=== PATIENT | female | born 1995 | race Caucasian/White ===

== ENCOUNTER 2020-08-31 19:29 | Emergency (ER) | payer MEDICAID, SELFPAY ==
[2020-08-31 19:40] VITALS: BP 120/81; PULSE 97; RESP 18; TEMP 36.6; O2SAT 99; BMI 35.4
== END 2020-08-31 22:10 | disposition left against medical advice (07) ==
PROVIDERS: Emergency Provider Emergency Medicine; PCP Family Medicine
DX: T78.40XA Allergy, unspecified, initial encounter (principal); X58.XXXA Exposure to other specified factors, initial encounter
CPT/HCPCS: 99281; 99282

== ENCOUNTER 2022-04-28 18:01 | Emergency (ER) | payer MEDICAID, SELFPAY ==
--- NOTE | ~2022-04-28 | CT_ITS ---
EXAMINATION: CT head/brain wo IV con CLINICAL INFORMATION: Reason for Exam worst headache of their life COMPARISON: None. TECHNIQUE: Contiguous axial imaging was performed from the skull base to vertex without intravenous contrast. Sagittal and coronal reformatted images were obtained. This CT examination was performed using dose optimization techniques as appropriate, variously including the following: * Automated exposure control * Adjustment of mA and/or kV according to patient size (this includes techniques or standardized protocols for targeted exams where dose is matched to indication/reason for exam; i.e. extremities or head) Use of iterative reconstruction technique DLP: 666 mGy-cm FINDINGS: No acute osseous or soft tissue abnormality. The mastoid air cells and visualized portions of the paranasal sinuses are well aerated. There is no evidence of acute intracranial hemorrhage or territorial infarction. No abnormal mass effect or midline shift is seen. Liz to white matter differentiation is well preserved. No extra-axial fluid collections are identified. No hydrocephalus. No significant volume loss. There is no abnormal attenuation within the brain parenchyma. CT/CT head/brain wo IV con IMPRESSION: No acute intracranial abnormality including hemorrhage, mass effect, hydrocephalus, or acute territorial edematous infarction.
[2022-04-28 18:31] VITALS: PULSE 99; RESP 19; TEMP 36.6; O2SAT 99; BMI 30.1
--- NOTE | 2022-04-28 18:37 | ED_ITS ---
HPI - Headache General Chief Complaint: Headache <Albania Rojas NP - Last Filed: 04/28/22 18:40> Stated Complaint: neck manipulation, severe headache afterwards- 2hr <Albania Rojas NP - Last Filed: 04/28/22 18:40> Time Seen by Provider: 04/28/22 21:57 <Albania Rojas NP - Last Filed: 04/28/22 18:40> Source: patient <Fabiana Leonard NP - Last Filed: 04/29/22 02:32> Mode of arrival: ambulatory <Fabiana Leonard NP - Last Filed: 04/29/22 02:32> Limitations: no limitations <Fabiana Leonard NP - Last Filed: 04/29/22 02:32> History of Present Illness HPI Narrative: 26-year-old female prefers to be called AJ presents with severe headache after having and neck manipulation at her primary care physician's office. Patient states her headache is severe and is causing dizziness. <Fabiana Leonard NP - Last Filed: 04/29/22 02:32> MD elicited complaint: headache <Fabiana Leonard NP - Last Filed: 04/29/22 02:32> Onset (ago): hour(s) (Within the hour of arrival) <Fabiana Leonard NP - Last Filed: 04/29/22 02:32> Onset description: suddenly <Fabiana Leonard NP - Last Filed: 04/29/22 02:32> Location: diffuse <Fabiana Leonard NP - Last Filed: 04/29/22 02:32> Severity: severe <Fabiana Leonard NP - Last Filed: 04/29/22 02:32> Pain scale (0-10): 10 <Fabiana Leonard NP - Last Filed: 04/29/22 02:32> Quality & Timing: throbbing <Fabiana Leonard NP - Last Filed: 04/29/22 02:32> Exacerbating factors: movement of head/neck <Fabiana Leonard NP - Last Filed: 04/29/22 02:32> Relieving factors: nothing <Fabiana Leonard NP - Last Filed: 04/29/22 02:32> Associated symptoms: lightheadedness <Fabiana Leonard NP - Last Filed: 04/29/22 02:32> Treatments prior to arrival: none <Fabiana Leonard NP - Last Filed: 04/29/22 02:32> Related Data Home Medications: Previous Rx's Medication Instructions Recorded cyclobenzaprine 10 mg tablet 10 mg PO TID PRN muscle spasm #10 04/29/22 tabs <Albania Rojas NP - Last Filed: 04/28/22 18:40> Allergies/Adverse Reactions: Allergies Allergy/AdvReac Type Severity Reaction Status Date / Time Benzodiazepines Allergy Unknown VOMITING Unverified 12/06/19 19:02 [BENZODIAZEPINES] quetiapine [From SEROQUEL] Allergy Unknown DELIRIOUS Unverified 12/06/19 19:02 latex Allergy Hives Verified 04/28/22 18:37 <Albania Rojas NP - Last Filed: 04/28/22 18:40> Review of Systems Review of Systems: Constitutional: No Fever, No Chills Cardiovascular: No Chest Pain, No SOB Respiratory: No Cough, No Dyspnea Gastrointestinal: No Nausea, No Vomiting, No Diarrhea, No abdominal Pain Genitourinary: No Dysuria, No Hematuria Musculoskeletal: No joint pain, No Myalgias, No Joint Swelling Skin: No Skin lacerations, No rash Neuro: No Weakness, No Numbness, No Paresthesias, No Loss of Consciousness, positive Dizziness, positive Headache <Fabiana Leonard NP - Last Filed: 04/29/22 02:32> Yes all other systems are reviewed and are negative <Fabiana Leonard NP - Last Filed: 04/29/22 02:32> [facility] Past Medical History Attestation statement: The following information was validated with the patient. <Fabiana Leonard NP - Last Filed: 04/29/22 02:32> Source: old records reviewed <Fabiana Leonard NP - Last Filed: 04/29/22 02:32> Medical History: Medical History No known health problems <Albania Rojas NP - Last Filed: 04/28/22 18:40> Social History Social History: Social History Alcohol intake: never Smoked in Last 30 Days: No Use of substances other than those prescribed or required for medical reasons: No Advance Directives: No Advance Directives Information Provided: No Patient : No <Albania Rojas NP - Last Filed: 04/28/22 18:40> Physical Exam Vital Signs: Vital Signs: Last Vital Signs Temp 98.7 F 04/29/22 00:00 Pulse 81 04/29/22 00:00 Resp 13 04/29/22 00:00 BP 115/72 04/29/22 00:00 Pulse Ox 98 04/29/22 00:00 O2 Del Method 04/29/22 00:00 BMI result Body Mass Index 30.1 <Albania Rojas NP - Last Filed: 04/28/22 18:40> Vital Signs: Last Vital Signs Temp 98.7 F 04/29/22 00:00 Pulse 81 04/29/22 00:00 Resp 13 04/29/22 00:00 BP 115/72 04/29/22 00:00 Pulse Ox 98 04/29/22 00:00 O2 Del Method 04/29/22 00:00 BMI result Body Mass Index 30.1 <Fabiana Leonard NP - Last Filed: 04/29/22 02:32> Appearance: Alert. Oriented X3. Moderate distress. Eyes: Pupils equal, round and reactive to light. Neck: Normal inspection. Neck supple. CVS: Normal heart rate and rhythm. Pulses normal. Respiratory: No respiratory distress. Skin: Skin warm and dry. Normal skin color. Normal skin turgor. Extremities: No lower extremity edema. Moves all extremities against resistance. Neuro: No motor deficit. No sensory deficit. Cranial nerves 2-12 intact. <Fabiana Leonard NP - Last Filed: 04/29/22 02:32> Course Course Course Narrative: This is a rapid medical exam. Deferred additional HPI, ROS, PE to primary provider. 26 yo female here with complaints of worsening ROSS after neck manipulation by her PCP today in the office. Referred in by PCP for further evaluation. Will obtain labs, UA, ur preg. May need additional imaging. <Albania Rojas NP - Last Filed: 04/28/22 18:40> This is a rapid medical exam. Deferred additional HPI, ROS, PE to primary provider. 26 yo female here with complaints of worsening ROSS after neck manipulation by her PCP today in the office. Referred in by PCP for further evaluation. Will obtain labs, UA, ur preg. May need additional imaging. 26-year-old female, prefers to be called AJ, presents for evaluation after a severe headache that occurred after a neck manipulation while she was at her primary care physician's office. Labs were drawn while patient was in the emergency department waiting room which are negative for acute findings requi ring emergent intervention. Patient is reporting 10/10 pain in her head, has full range of motion to her neck. Will order CT scan of the head for ?worst headache of her life?. Will give Fioricet for pain management. Neurovascularly intact. Patient states that the Fioricet was ineffective, CT scan is negative for acute findings requiring emergent intervention. Patient would like to be discharged home. Urinalysis is negative, vital signs are stable and within normal limits. Patient is ambulatory. Patient verbalized understanding of signs symptoms indicating need for emergent intervention. <Fabiana Leonard NP - Last Filed: 04/29/22 02:32> Medications Administered Discontinued Medications Generic Name Dose Route Start Last Admin Trade Name Freq PRN Reason Stop Dose Admin Acetaminophen/Butalbital/Caffeine 1 tab 04/28/22 22:01 04/28/22 22:10 Butalb/Acetamin/Caff 50/325/40 Tablet PO 04/28/22 22:02 1 tab ONCE ONE Administration <Albania Rojas NP - Last Filed: 04/28/22 18:40> Medications Administered Discontinued Medications Generic Name Dose Route Start Last Admin Trade Name Freq PRN Reason Stop Dose Admin Acetaminophen/Butalbital/Caffeine 1 tab 04/28/22 22:01 04/28/22 22:10 Butalb/Acetamin/Caff 50/325/40 Tablet PO 04/28/22 22:02 1 tab ONCE ONE Administration <Fabiana Leonard NP - Last Filed: 04/29/22 02:32> Medical Decision Making Differential Diagnosis Differential Diagnoses: The differential diagnosis associated with the presentation includes <Fabiana Leonard NP - Last Filed: 04/29/22 02:32> Migraine <Fabiana Leonard [employer]ER - Last Filed: 04/29/22 02:32> Lab Data MDM Lab Attestation statement: I reviewed the patient's lab results. <Fabiana Leonard, [employer] - Last Filed: 04/29/22 02:32> Result Diagrams: 04/28/22 19:59 04/28/22 19:59 <Albania Rojas [employer] - Last Filed: 04/28/22 18:40> Labs: Lab Results 04/28/22 04/28/22 04/28/22 Range/Units 19:59 19:59 20:18 WBC 7.7 (4.8-10.8) X10*3/uL RBC 4.39 (4.20-5.50) X10*6/uL Hgb 13.4 (12.0-16.0) g/dl Hct 39.2 (37.0-47.0) % MCV 89.3 (80.0-98.0) fL MCH 30.5 (27.0-33.0) pg MCHC 34.2 (31.0-35.0) g/dl RDW 12.2 (11.0-16.0) % Plt Count 362 (160-400) X10*3/uL MPV 9.8 (9.4-12.3) fL Immature Gran % (Auto) 0.1 (0.0-0.4) % Neut % (Auto) 49.8 (45-73) % Lymph % (Auto) 40.5 H (20-40) % [place] % (Auto) 7.5 (2-11) % Eos % (Auto) 1.6 (0-4) % Baso % (Auto) 0.5 (0-2) % Lymph # (Auto) 3.1 (1.2-4.9) X10*3/uL [place] # (Auto) 0.6 (0.1-1.2) X10*3/uL Eos # (Auto) 0.1 (0.0-0.4) X10*3/uL Baso # (Auto) 0.0 (0.0-0.2) X10*3/uL Abs Immat Gran (auto) 0.01 (0.00-0.03) X10*3/uL Absolute Neuts (auto) 3.9 (2.0-8.3) x10*3/uL Absolute Nucleated RBC 0.000 (0.0-0.012) X10*3/uL Nucleated RBC % (auto) 0.0 (0.0-0.2) /100WBC Sodium 141 (135-145) mmol/L Potassium 3.8 (3.3-5.1) mmol/L Chloride 104 (96-108) mmol/L Carbon Dioxide 24 (22-29) mmol/L Anion Gap 17 (12-20) BUN 6 L (9-16) mg/dL Creatinine 0.92 (0.5-1.4) mg/dL Estim Creat Clear Calc 89.5 Estimated GFR > 60 Random Glucose 92 (60-115) mg/dL Calcium 9.5 (8.4-10.2) mg/dL Total Bilirubin 0.3 (0.0-1.0) mg/dL Direct Bilirubin < 0.2 (0.0-0.5) mg/dL AST 19 (5-31) U/L ALT 16 (0-31) U/L Alkaline Phosphatase 90 (39-117) U/L Total Protein 7.0 (6.5-8.0) g/dL Albumin 4.7 (3.5-5.0) g/dL Urine Color Yellow Urine Appearance Clear Urine pH 6.5 (5.0-9.0) Ur Specific [place] <= 1.005 (1.005-1.025) Urine Protein Negative (Neg-Trace) mg/dL Urine Glucose (UA) Negative (Negative) mg/dL Urine Ketones Negative (Negative) mg/dL Urine Blood Negative (Negative) Urine Nitrite Negative (Negative) Ur Leukocyte Esterase Negative (Negative) Urine Test (NEGATIVE) 04/28/22 Range/Units 20:18 WBC (4.8-10.8) X10*3/uL RBC (4.20-5.50) X10*6/uL Hgb (12.0-16.0) g/dl Hct (37.0-47.0) % MCV (80.0-98.0) fL MCH (27.0-33.0) pg MCHC (31.0-35.0) g/dl RDW (11.0-16.0) % Plt Count (160-400) X10*3/uL MPV (9.4-12.3) fL Immature Gran % (Auto) (0.0-0.4) % Neut % (Auto) (45-73) % Lymph % (Auto) (20-40) % [place] % (Auto) (2-11) % Eos % (Auto) (0-4) % Baso % (Auto) (0-2) % Lymph # (Auto) (1.2-4.9) X10*3/uL [place] # (Auto) (0.1-1.2) X10*3/uL Eos # (Auto) (0.0-0.4) X10*3/uL Baso # (Auto) (0.0-0.2) X10*3/uL Abs Immat Gran (auto) (0.00-0.03) X10*3/uL Absolute Neuts (auto) (2.0-8.3) x10*3/uL Absolute Nucleated RBC (0.0-0.012) X10*3/uL Nucleated RBC % (auto) (0.0-0.2) /100WBC Sodium (135-145) mmol/L Potassium (3.3-5.1) mmol/L Chloride (96-108) mmol/L Carbon Dioxide (22-29) mmol/L Anion Gap (12-20) BUN (9-16) mg/dL Creatinine (0.5-1.4) mg/dL Estim Creat Clear Calc Estimated GFR Random Glucose (60-115) mg/dL Calcium (8.4-10.2) mg/dL Total Bilirubin (0.0-1.0) mg/dL Direct Bilirubin (0.0-0.5) mg/dL AST (5-31) U/L ALT (0-31) U/L Alkaline Phosphatase (39-117) U/L Total Protein (6.5-8.0) g/dL Albumin (3.5-5.0) g/dL Urine Color Urine Appearance Urine pH (5.0-9.0) Ur Specific [place] (1.005-1.025) Urine Protein (Neg-Trace) mg/dL Urine Glucose (UA) (Negative) mg/dL Urine Ketones (Negative) mg/dL Urine Blood (Negative) Urine Nitrite (Negative) Ur Leukocyte Esterase (Negative) Urine Test NEGATIVE (NEGATIVE) <Albaniadarek Rojas NP - Last Filed: 04/28/22 18:40> Lab Results 04/28/22 04/28/22 04/28/22 Range/Units 19:59 19:59 20:18 WBC 7.7 (4.8-10.8) X10*3/uL RBC 4.39 (4.20-5.50) X10*6/uL Hgb 13.4 (12.0-16.0) g/dl Hct 39.2 (37.0-47.0) % MCV 89.3 (80.0-98.0) fL MCH 30.5 (27.0-33.0) pg MCHC 34.2 (31.0-35.0) g/dl RDW 12.2 (11.0-16.0) % Plt Count 362 (160-400) X10*3/uL MPV 9.8 (9.4-12.3) fL Immature Gran % (Auto) 0.1 (0.0-0.4) % Neut % (Auto) 49.8 (45-73) % Lymph % (Auto) 40.5 H (20-40) % [place] % (Auto) 7.5 (2-11) % Eos % (Auto) 1.6 (0-4) % Baso % (Auto) 0.5 (0-2) % Lymph # (Auto) 3.1 (1.2-4.9) X10*3/uL [place] # (Auto) 0.6 (0.1-1.2) X10*3/uL Eos # (Auto) 0.1 (0.0-0.4) X10*3/uL Baso # (Auto) 0.0 (0.0-0.2) X10*3/uL Abs Immat Gran (auto) 0.01 (0.00-0.03) X10*3/uL Absolute Neuts (auto) 3.9 (2.0-8.3) x10*3/uL Absolute Nucleated RBC 0.000 (0.0-0.012) X10*3/uL Nucleated RBC % (auto) 0.0 (0.0-0.2) /100WBC Sodium 141 (135-145) mmol/L Potassium 3.8 (3.3-5.1) mmol/L Chloride 104 (96-108) mmol/L Carbon Dioxide 24 (22-29) mmol/L Anion Gap 17 (12-20) BUN 6 L (9-16) mg/dL Creatinine 0.92 (0.5-1.4) mg/dL Estim Creat Clear Calc 89.5 Estimated GFR > 60 Random Glucose 92 (60-115) mg/dL Calcium 9.5 (8.4-10.2) mg/dL Total Bilirubin 0.3 (0.0-1.0) mg/dL Direct Bilirubin < 0.2 (0.0-0.5) mg/dL AST 19 (5-31) U/L ALT 16 (0-31) U/L Alkaline Phosphatase 90 (39-117) U/L Total Protein 7.0 (6.5-8.0) g/dL Albumin 4.7 (3.5-5.0) g/dL Urine Color Yellow Urine Appearance Clear Urine pH 6.5 (5.0-9.0) Ur Specific [place] <= 1.005 (1.005-1.025) Urine Protein Negative (Neg-Trace) mg/dL Urine Glucose (UA) Negative (Negative) mg/dL Urine Ketones Negative (Negative) mg/dL Urine Blood Negative (Negative) Urine Nitrite Negative (Negative) Ur Leukocyte Esterase Negative (Negative) Urine Test (NEGATIVE) 04/28/22 Range/Units 20:18 WBC (4.8-10.8) X10*3/uL RBC (4.20-5.50) X10*6/uL Hgb (12.0-16.0) g/dl Hct (37.0-47.0) % MCV (80.0-98.0) fL MCH (27.0-33.0) pg MCHC (31.0-35.0) g/dl RDW (11.0-16.0) % Plt Count (160-400) X10*3/uL MPV (9.4-12.3) fL Immature Gran % (Auto) (0.0-0.4) % Neut % (Auto) (45-73) % Lymph % (Auto) (20-40) % [place] % (Auto) (2-11) % Eos % (Auto) (0-4) % Baso % (Auto) (0-2) % Lymph # (Auto) (1.2-4.9) X10*3/uL [place] # (Auto) (0.1-1.2) X10*3/uL Eos # (Auto) (0.0-0.4) X10*3/uL Baso # (Auto) (0.0-0.2) X10*3/uL Abs Immat Gran (auto) (0.00-0.03) X10*3/uL Absolute Neuts (auto) (2.0-8.3) x10*3/uL Absolute Nucleated RBC (0.0-0.012) X10*3/uL Nucleated RBC % (auto) (0.0-0.2) /100WBC Sodium (135-145) mmol/L Potassium (3.3-5.1) mmol/L Chloride (96-108) mmol/L Carbon Dioxide (22-29) mmol/L Anion Gap (12-20) BUN (9-16) mg/dL Creatinine (0.5-1.4) mg/dL Estim Creat Clear Calc Estimated GFR Random Glucose (60-115) mg/dL Calcium (8.4-10.2) mg/dL Total Bilirubin (0.0-1.0) mg/dL Direct Bilirubin (0.0-0.5) mg/dL AST (5-31) U/L ALT (0-31) U/L Alkaline Phosphatase (39-117) U/L Total Protein (6.5-8.0) g/dL Albumin (3.5-5.0) g/dL Urine Color Urine Appearance Urine pH (5.0-9.0) Ur Specific [place] (1.005-1.025) Urine Protein (Neg-Trace) mg/dL Urine Glucose (UA) (Negative) mg/dL Urine Ketones (Negative) mg/dL Urine Blood (Negative) Urine Nitrite (Negative) Ur Leukocyte Esterase (Negative) Urine Test NEGATIVE (NEGATIVE) <Fabiana Leonard NP - Last Filed: 04/29/22 02:32> Independent Interpretation I performed an independent interpretation of an: CT Scan <Fabiana Leonard NP - Last Filed: 04/29/22 02:32> Radiology Impression Discussion of test interpretation with radiology: I have reviewed the radiologist's reading. <Fabiana Leonard NP - Last Filed: 04/29/22 02:32> Radiologist Impression: FINDINGS: No acute osseous or soft tissue abnormality. The mastoid air cells and visualized portions of the paranasal sinuses are well aerated. There is no evidence of acute intracranial hemorrhage or territorial infarction. No abnormal mass effect or midline shift is seen. Liz to white matter differentiation is well preserved. No extra-axial fluid collections are identified. No hydrocephalus. No significant volume loss. There is no abnormal attenuation within the brain parenchyma. ? CT/CT head/brain wo IV con IMPRESSION: ? No acute intracranial abnormality including hemorrhage, mass effect, hydrocephalus, or acute territorial edematous infarction. <Fabiana Leonard NP - Last Filed: 04/29/22 02:32> External Record Review No prior a patient records at this facility <Fabiana Leonard NP - Last Filed: 04/29/22 02:32> Prescription Management I considered prescription management with: Other (Muscle relaxer) <Fabiana Leonard NP - Last Filed: 04/29/22 02:32> Discharge Plan Discharge Clinical Impression: Headache, Muscle strain <Albania Rojas NP - Last Filed: 04/28/22 18:40> Patient Disposition: Home, Self-Care <Albania Rojas NP - Last Filed: 04/28/22 18:40> Instructions: Muscle Strain (ED), Acute Headache (ED) <Albania Rojas NP - Last Filed: 04/28/22 18:40> Additional Instructions: You were evaluated for pain after a neck adjustment. CT scan of the head negative for acute findings requiring emergent intervention. Your symptoms are consistent with possible musculoskeletal strain. Please take cyclobenzaprine 10 mg every 8 hours as needed. This medication is a muscle relaxer, this medication can delay reaction time, increased risk for falls, and cause drowsiness. Do not drive or operate machinery while taking this medication Your lab values are within normal limits Thank you for choosing this emergency department for evaluation. Please follow-up with primary care physician as needed. Return to the emergency department for any new, concerning, or worsening symptoms. <Albania Rojas NP - Last Filed: 04/28/22 18:40> Prescriptions: New cyclobenzaprine 10 mg tablet 10 mg PO TID PRN (Reason: muscle spasm) Qty: 10 0RF <Albania Rojsa NP - Last Filed: 04/28/22 18:40> Interventions: ED Discharge Assessment Last Done: 04/29/22 00:46 <Albania Rojas NP - Last Filed: 04/28/22 18:40> Discharge Date/Time: 04/29/22 00:47 <Albania Rojas NP - Last Filed: 04/28/22 18:40>
[2022-04-28 20:05] LABS: MANUAL DIFF FLAG NO
[2022-04-28 20:06] LABS: Basophils Percent Auto 0.5 % (0-2); Eosinophils Absolute Auto 0.1 X10*3/uL (0.0-0.4); Eosinophils Percent Auto 1.6 % (0-4); Hematocrit 39.2 % (37.0-47.0); Hemoglobin 13.4 g/dl (12.0-16.0); Imm Gran Abs Auto 0.01 X10*3/uL (0.00-0.03); Imm Gran Pct Auto 0.1 % (0.0-0.4); Lymphocytes Absolute Auto 3.1 X10*3/uL (1.2-4.9); Lymphocytes Percent Auto 40.5 % (20-40); Mean Corpuscular HGB Conc 34.2 g/dl (31.0-35.0); Mean Corpuscular Hemoglobin 30.5 pg (27.0-33.0); Mean Corpuscular Volume 89.3 fL (80.0-98.0); Mean Platelet Volume 9.8 fL (9.4-12.3); Monocytes Absolute Auto 0.6 X10*3/uL (0.1-1.2); Monocytes Percent Auto 7.5 % (2-11); Neutrophils Absolute Auto 3.9 x10*3/uL (2.0-8.3); Neutrophils Percent Auto 49.8 % (45-73); Platelet Count 362 X10*3/uL (160-400); Red Blood Count 4.39 X10*6/uL (4.20-5.50); Red Cell Distribution Width 12.2 % (11.0-16.0); White Blood Count 7.7 X10*3/uL (4.8-10.8)
[2022-04-28 20:10] VITALS: BP 121/85; PULSE 91; RESP 14; TEMP 36.8; O2SAT 99
[2022-04-28 20:27] LABS: Appearance Urine Clear; Color Urine Yellow; Glucose Urine UA Negative (Negative); Leukocyte Esterase Urine Negative (Negative); Nitrite Urine Negative (Negative); PH 6.5 (5.0-9.0); Specific Gravity - Urine <= 1.005 (1.005-1.025); Urine Blood Negative (Negative); Urine Ketones Negative (Negative); Urine Protein Negative (Neg-Trace)
[2022-04-28 20:29] LABS: Alanine Aminotransferase 16 U/L (0-31); Albumin Level 4.7 g/dL (3.5-5.0); Alkaline Phosphatase 90 U/L (39-117); Anion Gap 17 (12-20); Aspartate Amino Transferase 19 U/L (5-31); Bilirubin Direct < 0.2 mg/dL (0.0-0.5); Bilirubin Total 0.3 mg/dL (0.0-1.0); Blood Urea Nitrogen 6 mg/dL (9-16); Calcium 9.5 mg/dL (8.4-10.2); Carbon Dioxide 24 mmol/L (22-29); Chloride 104 mmol/L (96-108); Creatinine Clr Calc Pharmacy 89.5; Estimated Glomerular Filt Rate > 60; Glucose Random 92 mg/dL (60-115); Potassium 3.8 mmol/L (3.3-5.1); Sodium 141 mmol/L (135-145)
[2022-04-28 20:32] LABS: UPreg QC Valid YES; Urine Pregnancy NEGATIVE (NEGATIVE)
[2022-04-28] MEDS: Butalb/Acetamin/Caff 50/325/40 TABLET 1 TAB PO (22:10)
[2022-04-29] VITALS: BP 115/72; PULSE 81; RESP 13; TEMP 37.1; O2SAT 98
== END 2022-04-29 00:47 | disposition home or self-care (01) ==
PROVIDERS: Nurse Practitioner Family; Emergency Provider Emergency Medicine Emergency Medical Services; PCP Family Medicine
DX: R51.9 Headache, unspecified (principal); S16.1XXA Strain of muscle, fascia and tendon at neck level, initial encounter; X50.9XXA Other and unspecified overexertion or strenuous movements or postures, initial encounter; Y93.89 Activity, other specified; Y92.531 Health care provider office as the place of occurrence of the external cause; Y99.9 Unspecified external cause status
CPT/HCPCS: 36415; 70450; 80048; 80076; 81003; 81025; 85025; 99284